=== PATIENT | female | born 1990 | race American Indian/Alaskan Native ===

== ENCOUNTER 2021-12-19 22:23 | Emergency (ER) | payer OTHER ==
[2021-12-20] MEDS ORDERED: FLUORESCEIN 1 MG STRIP OP ONE (10:16)
[2021-12-20] MEDS ORDERED: TETRACAINE 0.5% OPHTH SOLN 4ML OU ONE (10:16)
--- NOTE | 2021-12-20 10:23 | Emergency Department Report ---
ED Eye Problem HPI - General Chief complaint: Eye Problems Stated complaint: PHOTO SENSITIVE Time Seen by Provider: 12/20/21 10:12 Source: patient Mode of arrival: Ambulatory Limitations: No Limitations - History of Present Illness Initial comments: This is a 31-year-old female nontoxic, well nourished in appearance, no acute signs of distress presents to the ED with c/o of right eye redness, photophobia and pain times several days. Patient that she was on a bus and scratched herself with her nails while at [place]. Patient denies any trauma to the eye. Denies any foreign body sensation or floaters. Patient denies any visual changes but stated has some decreased vision. Patient denies any fever, chills, nausea, vomiting, chest pain, breath, headache, stiff neck numbness or tingling. Patient stated allergies or PCN. Patient stated she does wear contact lenses and only has contact lenses to her left eye with a vision scoring of -7 to bilateral eyes. MD chief complaint: eye pain, eye redness -: days(s) Location: right eye If Injury: none Eye Symptoms: burning, redness, pain, blurry vision, photophobia Severity: mild Severity scale (0 -10): 3 If Pain, Quality: aching Consistency: constant Associated Symptoms: none. denies: headache, neck pain, nausea/vomiting, cough, rhinorrhea, fever, shortness of breath Treatments Prior to Arrival: none - Related Data Previous Rx's Medication Instructions Recorded Last Taken Type Polymyxin B Sulf/Trimethoprim 2 drops OD TID 10 Days #1 bottle 12/20/21 Unknown Rx [Polytrim Eye Drops] Allergies Allergy/AdvReac Type Severity Reaction Status Date / Time Penicillins Allergy Hives Verified 12/19/21 22:44 ED Review of Systems ROS: Stated complaint: PHOTO SENSITIVE Other details as noted in HPI Comment: All other systems reviewed and negative Constitutional: denies: chills, fever Eyes: eye pain. denies: eye discharge, vision change ENT: denies: ear pain, throat pain Respiratory: denies: cough, shortness of breath, wheezing Cardiovascular: denies: chest pain, palpitations Endocrine: no symptoms reported Gastrointestinal: denies: abdominal pain, nausea, diarrhea Genitourinary: denies: urgency, dysuria, discharge Musculoskeletal: denies: back pain, joint swelling, arthralgia Skin: denies: rash, lesions Neurological: denies: headache, weakness, paresthesias Psychiatric: denies: anxiety, depression Hematological/Lymphatic: denies: easy bleeding, easy bruising ED Past Medical Hx - Social History Smoking Status: Never Smoker Substance Use Type: Alcohol - Medications Home Medications: Home Medications Medication Instructions Recorded Confirmed Last Taken Type Polymyxin B Sulf/Trimethoprim 2 drops OD TID 10 Days #1 bottle 12/20/21 Unknown Rx [Polytrim Eye Drops] ED Physical Exam - General Limitations: No Limitations General appearance: alert, in no apparent distress - Head Head exam: Present: atraumatic, normocephalic - Eye Eye exam: Present: normal appearance, PERRL, EOMI. Absent: scleral icterus, conjunctival injection, nystagmus, periorbital swelling, periorbital tenderness Pupils: Present: normal accommodation - Expanded Eye Exam Expanded Eyelids: Normal Inspection: Right Pupils: Regular, Round: Right Sclera/Conjunctival: Normal Inspection: Right (with some redness to sclera) IOP (R) in mmH IOP measured with: Tonopen - Neck Neck exam: Present: normal inspection, full ROM. Absent: lymphadenopathy - Respiratory Respiratory exam: Absent: respiratory distress - Cardiovascular Cardiovascular Exam: Present: regular rate - Extremities Exam Extremities exam: Present: full ROM - Back Exam Back exam: Present: full ROM - Neurological Exam Neurological exam: Present: alert, oriented X3, normal gait - Psychiatric Psychiatric exam: Present: normal affect, normal mood - Skin Skin exam: Present: warm, dry, intact, normal color. Absent: rash - Other Other exam information: Under Mitchell lamp, I used fluorescein and tetracaine to examine cornea for corneal abrasion or foreign body, there is a small left lateral coronary abrasion without foreign body. ED Course Vital Signs 12/19/21 12/19/21 22:40 22:46 Temperature 97.8 F Pulse Rate 50 L Respiratory 19 Rate Blood Pressure 138/88 [Left] O2 Sat by Pulse 100 Oximetry - Reevaluation(s) Reevaluation #1: 12/20/21 10:24 Patient is speaking in full sentences with no signs of distress noted. ED Medical Decision Making - Medical Decision Making 31-year-old female that presents with right corneal abrasion. Patient is stable and was examined by me. Otherwise physical exam is unremarkable. Patient has normal visual acuity towards the left eye because she has a contact on and stated that she has significant blurry vision to the right eye which she stated is normal as she has a -7 visual acuity. Patient be discharged with antibiotic ophthalmic drops. Patient was instructed to follow-up with a motorcyles final inspector doctor in 2 days or if symptoms worsen and continue return to emergency room as soon as possible. At time of discharge, the patient does not seem toxic or ill in appearance. No acute signs of distress noted. Patient agrees to discharge treatment plan of care. No further questions noted by the patient. Critical care attestation.: If time is entered above; I have spent that time in minutes in the direct care of this critically ill patient, excluding procedure time. ED Disposition Clinical Impression: Right corneal abrasion Qualifiers: Encounter type: initial encounter Qualified Code(s): S05.01XA - Injury of conjunctiva and corneal abrasion without foreign body, right eye, initial encounter Disposition: HOME / SELF CARE / HOMELESS Is pt being admited?: No Does the pt Need Aspirin: No Condition: Stable Instructions: Corneal Abrasion Additional Instructions: Follow-up with a motorcyles final inspector doctor in 2 days or if symptoms worsen and continue return to emergency room as soon as possible. Prescriptions: Polymyxin B Sulf/Trimethoprim [Polytrim Eye Drops] 2 drops OD TID 10 Days #1 bottle Referrals: PRIMARY CAREMD [Referring] - 3-5 Days WINSTON BLANK MD [Staff Physician] - 12/22/21 Time of Disposition: 10:54
[2021-12-20 11:04] VITALS: BP 130/80
== END 2021-12-20 11:48 | disposition home or self-care (01) ==
LOC: ED 22:23
DX: S05.01XA Injury of conjunctiva and corneal abrasion without foreign body, right eye, initial encounter (principal); Z88.0 Allergy status to penicillin; X58.XXXA Exposure to other specified factors, initial encounter; Y93.89 Activity, other specified; Y92.89 Other specified places as the place of occurrence of the external cause; Y99.8 Other external cause status
CPT/HCPCS: 99283